=== PATIENT | female | born 1975 | race Two or more races ===

== ENCOUNTER → 2024-11-04 | Outpatient (CLI) | payer BC, SELFPAY ==
[2024-11-04 10:52] LABS: Basophils % (Auto) 1 % (0-2.5); Eosinophils # (Auto) 0.2 Thou/mm3 (0.0-0.5); Eosinophils % (Auto) 3 % (0-10); Hemoglobin 14.1 g/dL (12.0-16.0); Immature Granulocytes % (Auto) 0 % (0-0); Immature Granulocytes Auto 0.01 Thou/mm3 (0.00-0.00); Lymphocytes # (Auto) 2.5 Thou/mm3 (1.0-4.8); Lymphocytes % (Auto) 45 % (10-50); Mean Corpuscular HGB Conc 32.8 g/dl (31.0-37.0); Mean Corpuscular Hemoglobin 28.5 pg (25.0-35.0); Mean Corpuscular Volume 87 fL (80-100); Monocytes # (Auto) 0.4 Thou/mm3 (0.0-0.8); Monocytes % (Auto) 7 % (0-12); Neutrophils # (Auto) 2.5 Thou/mm3 (1.8-7.7); Neutrophils % (Auto) 45 % (37-80); Nucleated Red Blood Cell % 0 /100 WBC (0); Platelet Count 333 Thou/mm3 (140-440); Red Blood Count 4.94 Miln/mm3 (4.00-5.20); White Blood Count 5.7 Thou/mm3 (3.6-11.0)
[2024-11-04 10:56] LABS: Vitamin B12 427 pg/mL (211-911); Vitamin D 25 Hydroxy Total 21.4 ng/mL (7.3-40.2)
[2024-11-04 10:57] LABS: Glucose Estimated Average 114 mg/dL (80-131); Hemoglobin A1C 5.6 % Hgb (4.8-6.0)
[2024-11-04 11:12] LABS: Alanine Aminotransferase 27 U/L (10-49); Albumin, Serum 4.9 gm/dL (3.5-5.0); Alkaline Phosphatase 100 U/L (46-116); Anion Gap 6 (7-16); Aspartate Amino Transferase 18 U/L (0-34); BUN/Creatinine Ratio 21 Ratio (12-20); Bilirubin,Total 0.5 mg/dL (0.3-1.2); Blood Urea Nitrogen 15 mg/dL (9-23); Calcium 9.8 mg/dL (8.3-10.6); Calcium (Corrected) 9.8 mg/dL (8.5-10.1); Carbon Dioxide 29.7 mMol/L (20.0-31.0); Cardiac Risk Estimate 5.1 RATIO (3.7-5.6); Chloride 104 mMol/L (98-107); Cholesterol 238 mg/dL (132-200); Creatinine (Component) 0.7 mg/dL (0.6-1.3); Free T4 (Free Thyroxine) 1.13 ng/dL (0.89-1.76); Globulin 2.5 gm/dL (2.3-3.5); Glucose 94 mg/dL (74-106); HDL Cholesterol 47 mg/dL (40-60); LDL Cholesterol,Calculated 142 mg/dL (0-130); Magnesium 2.2 mg/dL (1.6-2.6); Osmolality,Calculated 280 (275-295); Potassium 4.7 mMol/L (3.4-5.1); Sodium 140 mMol/L (136-145); Thyroid Stimulating Hormone 1.51 uIU/mL (0.55-4.78); Total Protein 7.4 gm/dL (5.7-8.2); Triglycerides 245 mg/dL (30-150); eGFR > 60 See Note
== END | disposition home or self-care (01) ==
PROVIDERS: PCP Internal Medicine; Referring Provider Internal Medicine; Visit Provider Internal Medicine
DX: Z00.00 Encounter for general adult medical examination without abnormal findings (principal); E55.9 Vitamin D deficiency, unspecified
CPT/HCPCS: 36415; 80053; 80061; 82306; 82607; 83036; 83735; 84439; 84443; 85025

== ENCOUNTER → 2025-01-27 | Outpatient (CLI) | payer BC, SELFPAY ==
--- NOTE | 2025-01-27 14:52 | XR_ITS ---
Examination: Skull series 4 views TECHNIQUE: Mee Arellano left lateral right lateral skull series 4 views Exam date and time: January 27, 2025 1455 hours Comparison August 20, 2020 Small frontal forehead growth noticed beginning 3 years ago. FINDINGS: Left lateral skull film does demonstrate small probable bone exostosis off the frontal bone. 2 mm in thickness and 7 mm in cephalocaudad dimension No cranial vault fracture Normal sella turcica No abnormal intracranial calcifications IMPRESSION: Small probable bone exostosis off the frontal bone, consider CT scan brain without contrast follow-up
--- NOTE | 2025-01-27 14:52 | XR_ITS ---
Examination: Facial series 4 views TECHNIQUE: Mee Rolle lateral submentovertex facial series 4 views INDICATIONS: Forehead swelling and bump noticed beginning 3 years ago. FINDINGS: Right frontal bone probable bony exostosis, 2 mm in AP dimension and 4 mm cephalad caudad dimension No facial fracture Orbital rims intact IMPRESSION: Small bony exostosis off the frontal bone as above
== END | disposition home or self-care (01) ==
LOC: CDIM 14:40
PROVIDERS: PCP Internal Medicine; Referring Provider Internal Medicine; Visit Provider Internal Medicine
DX: M89.9 Disorder of bone, unspecified (principal)
CPT/HCPCS: 70150; 70260

== ENCOUNTER → 2025-05-08 | Outpatient (CLI) | payer BC, SELFPAY ==
--- NOTE | 2025-05-08 08:30 | XR_ITS ---
Examination: CT brain head without contrast. 2-D sagittal coronal reconstructions Date and time of exam:May 08, 2025 0846 hours Comparison June 08, 2006 INDICATIONS: Frontal headaches 5 years CTDI: vol (mGy):43.5 DLP: (mGycm):826 Technique: Multiple CT axial sections of the brain have been obtained, 5 mm slice thickness. Contrast has not been administered. 2-D sagittal, coronal reconstructions have been obtained Low dose protocols were performed. One or more of the following dose reduction techniques were used; automated exposure control, adjustment of the mA and/or KV according to patient size, use of iterative reconstruction technique. Findings: No significant ventricular enlargement. Intra-axial or extra-axial hemorrhage density is not seen. No mass effect or midline shift Basal cisterns are not remarkable. Fourth ventricle is midline. Cranial vault intact. Small bony exostosis off the right frontal bone, 6 mm Impression: Negative for acute hemorrhage, mass effect or midline shift
== END | disposition home or self-care (01) ==
PROVIDERS: PCP Internal Medicine; Referring Provider Internal Medicine; Visit Provider Internal Medicine
DX: R51.9 Headache, unspecified (principal); M89.8X8 Other specified disorders of bone, other site
CPT/HCPCS: 70450